=== PATIENT | male | born 1975 | race Caucasian/White ===

== ENCOUNTER 2017-10-17 21:40 | Emergency (ER) | payer OTHER ==
[~2017-10-17] VITALS: Ht 185.4 cm; Wt 108.9 kg
[~2017-10-17 21:40] MED LIST: ACYCLOVIR 400400 MG PO; BACTRIM DS TAB1 EACH PO; CIPROFLOXACIN500 M1 PO; DOXYCYCLINE 10100 MG PO; HYDROCODONE-APA1 TA1 PO; IBUPROFEN 800800 M1 PO; IBUPROFEN 800800 MG PO; KEFLEX500 MG PO; NOHOMEMEDICATIONS; NORCO 5-325 TA1 EACH PO; PENICILLIN VK500 M1 PO; PENICILLIN VK500 MG PO; PREDNISONE50 MG PO; TRAMADOL 50 MG50 MG PO; ULTRAM 50MG TAB50 MG PO; ZOVIRAX5 GM TP
[2017-10-17 23:09] LABS: ABSOLUTE BASOPHILS 0.1 thou/uL (0.0-0.2); ABSOLUTE EOSINOPHILS 0.3 thou/uL (0.0-0.7); ABSOLUTE LYMPHOCYTES 1.2 thou/uL (0.8-5.3); ABSOLUTE MONOCYTES 1.7 thou/uL (0.0-1.2); ABSOLUTE NEUTROPHILS 6.5 thou/uL (1.6-8.1); BASOPHILS 0.8 %; EOSINOPHILS 2.9 %; HEMATOCRIT 45.4 % (42.0-52.0); HEMOGLOBIN 15.6 gm/dL (14.0-18.0); LYMPHOCYTES 12.4 %; MCH 29.1 pg (26.0-34.0); MCHC 34.3 g/dL (28.0-37.0); MCV 84.9 fL (80.0-100.0); MPV 7.4 fl. (7.2-11.1); NUCLEATED RBCS 0 /100WBC; PLATELET COUNT* 217 thou/uL (150-400); POLYS 66.9 %; RBC 5.35 mil/uL (4.50-6.00); RDW-CV 13.3 % (10.5-14.5); WBC 9.7 thou/uL (4.0-11.0)
[2017-10-17 23:22] LABS: APTT 28.2 Seconds (25.0-31.3); PROTIME 10.1 Seconds (9.20-11.50)
[2017-10-17 23:27] LABS: CALCIUM 8.2 mg/dL (8.5-10.1); CREATININE 1.2 mg/dL (0.6-1.3); POTASSIUM 3.6 mmol/L (3.5-5.1)
[2017-10-17 23:32] LABS: ALBUMIN 3.5 g/dL (3.4-5.0); TOTAL BILIRUBIN 0.2 mg/dL (<0.1-1.0); TOTAL PROTEIN 7.1 g/dL (6.4-8.2)
[2017-10-17 23:57] LABS: INFLUENZA A ANTIGEN None Detected (None Detect); INFLUENZA B ANTIGEN None Detected (None Detect)
[2017-10-18 00:07] LABS: URINE BILIRUBIN NEGATIVE (Negative); URINE BLOOD TRACE (Negative); URINE CLARITY CLEAR; URINE COLOR YELLOW; URINE GLUCOSE-RANDOM NEGATIVE (Negative); URINE KETONES NEGATIVE (Negative); URINE LEUKOCYTES-REFLEX NEGATIVE (Negative); URINE NITRITE-REFLEX NEGATIVE (Negative); URINE PROTEIN NEGATIVE (Negative); URINE SPECIFIC GRAVITY <= 1.005 (1.005-1.030); URINE UROBILINOGEN 0.2 E.U./dl (0.2-1.0)
[2017-10-18 00:15] LABS: AMP/METHAMP Negative (Negative); BARBITURATES Negative (Negative); BENZODIAZEPINES Negative (Negative); COCAINE Negative (Negative); METHADONE Negative (Negative); OPIATES Negative (Negative); PCP Negative (Negative); THC Negative (Negative)
[2017-10-18] MEDS ORDERED: PRILOSEC 20 MG20 MG PO (00:57)
[2017-10-18] MEDS ORDERED: CARAFATE1 GM PO (00:57)
[2017-10-18 01:20] VITALS: BP 117/76
[2017-10-19] MEDS ORDERED: TORADOL 10 MG T10 MG PO (17:57)
[2017-10-19] MEDS ORDERED: ZPAK PO (17:57)
[2017-10-19] MEDS ORDERED: ZOFRAN ODT4 MG PO (17:57)
[2017-10-19] MEDS ORDERED: PROAIR HFA8.5 GM INH (18:03)
[2017-10-19] MEDS ORDERED: PROMETHAZINE V473 ML PO (18:03)
== END 2017-10-18 01:20 | disposition home or self-care (01) ==
LOC: M.ERS 21:40
PROVIDERS: Physician Assistant
DX: B34.9 Viral infection, unspecified (principal); K92.0 Hematemesis; R19.7 Diarrhea, unspecified; F17.210 Nicotine dependence, cigarettes, uncomplicated; Z90.89 Acquired absence of other organs

== ENCOUNTER 2017-10-19 15:30 | Emergency (ER) | payer OTHER ==
[~2017-10-19] VITALS: Ht 185.4 cm; Wt 108.9 kg
[~2017-10-19 15:30] MED LIST changes: +CARAFATE1 GM PO; +PRILOSEC 20 MG20 MG PO
--- NOTE | 2017-10-19 16:29 | EKG ---
[place] [address] ELECTROCARDIOGRAM REPORT Name: ANASHERRILL Room: [facility]#: [id number] Admission: 10/19/17 Attend Phys: Discharge: Date of : 75 Report #: [id number] THIS REPORT FOR: //name// [facility] ED Test Date: 2017-10-19 Test Time: 15:44:14 Pat Name: SHERRILL PEREZ Department: Room: Gender: Tax Services Specialist: Archie LEONG : 1975 Requested By: Kelin Owen Order Number: [id number] MD: Mikey Restrepo Measurements Intervals [place] Rate: 84 P: 42 NE: 124 QRS: 10 QRSD: 80 T: 24 QT: 325 QTc: 385 Interpretive Statements Sinus rhythm Compared to ECG 11/07/2016 15:44:40 Atrial premature complex(es) no longer present Short NE interval no longer present Electronically Signed On 10-19-2017 16:29:11 [employer] by Mikey Restrepo [email or web address] <ELECTRONICALLY SIGNED> By: Mikey Restrepo MD, [facility] 10/19/17 1629 1544 1544 Mikey Restrepo MD, FAC /EPI
[2017-10-19 16:32] LABS: ABSOLUTE EOSINOPHILS 0.1 thou/uL (0.0-0.7); ABSOLUTE LYMPHOCYTES 0.9 thou/uL (0.8-5.3); ABSOLUTE NEUTROPHILS 4.6 thou/uL (1.6-8.1); BASOPHILS 0.6 %; EOSINOPHILS 1.4 %; HEMATOCRIT 49.1 % (42.0-52.0); HEMOGLOBIN 16.7 gm/dL (14.0-18.0); LYMPHOCYTES 13.9 %; MCV 85.3 fL (80.0-100.0); MPV 7.8 fl. (7.2-11.1); NUCLEATED RBCS 0 /100WBC; PLATELET COUNT* 150 thou/uL (150-400); POLYS 69.1 %; RBC 5.75 mil/uL (4.50-6.00); RDW-CV 13.5 % (10.5-14.5); WBC 6.6 thou/uL (4.0-11.0)
[2017-10-19 16:40] LABS: ANION GAP 9 mmol/L (7-16); BUN 6 mg/dL (7-18); CALCIUM 8.1 mg/dL (8.5-10.1); CHLORIDE 103 mmol/L (98-107); CO2 27 mmol/L (21-32); CREATININE 1.2 mg/dL (0.6-1.3); GLUCOSE 98 mg/dL (70-99); POTASSIUM 3.8 mmol/L (3.5-5.1); SODIUM 139 mmol/L (136-145)
[2017-10-19 16:52] LABS: ALBUMIN 3.4 g/dL (3.4-5.0); ALKALINE PHOSPHATASE 111 U/L (46-116); SGOT 23 U/L (15-37); SGPT 24 U/L (30-65); TOTAL BILIRUBIN 0.3 mg/dL (<0.1-1.0); TROPONIN-I LEVEL <0.06 ng/mL (<0.06)
[2017-10-19] MEDS ORDERED: TORADOL 10 MG T10 MG PO (17:57)
[2017-10-19] MEDS ORDERED: ZOFRAN ODT4 MG PO (17:57)
[2017-10-19] MEDS ORDERED: ZPAK PO (17:57)
[2017-10-19] MEDS ORDERED: PROMETHAZINE V473 ML PO (18:03)
[2017-10-19] MEDS ORDERED: PROAIR HFA8.5 GM INH (18:03)
[2017-10-19 18:06] VITALS: BP 138/83
== END 2017-10-19 18:06 | disposition home or self-care (01) ==
LOC: M.ERS 15:30
PROVIDERS: Physician Assistant
DX: J20.9 Acute bronchitis, unspecified (principal); F17.210 Nicotine dependence, cigarettes, uncomplicated

== ENCOUNTER 2018-07-17 12:40 | Emergency (ER) | payer OTHER ==
[~2018-07-17] VITALS: Ht 185.4 cm; Wt 111.6 kg
[~2018-07-17 12:40] MED LIST changes: +PROAIR HFA8.5 GM INH; +PROMETHAZINE V473 ML PO; +TORADOL 10 MG T10 MG PO; +ZOFRAN ODT4 MG PO; +ZPAK PO
[2018-07-17 13:04] LABS: ABSOLUTE BASOPHILS 0.1 thou/uL (0.0-0.2); ABSOLUTE EOSINOPHILS 0.4 thou/uL (0.0-0.7); ABSOLUTE LYMPHOCYTES 2.9 thou/uL (0.8-5.3); ABSOLUTE MONOCYTES 0.8 thou/uL (0.0-1.2); BASOPHILS 0.9 %; EOSINOPHILS 4.8 %; HEMOGLOBIN 16.4 gm/dL (14.0-18.0); LYMPHOCYTES 31.3 %; MCH 28.5 pg (26.0-34.0); MCHC 33.6 g/dL (28.0-37.0); MCV 84.9 fL (80.0-100.0); MPV 7.8 fl. (7.2-11.1); NUCLEATED RBCS 0 /100WBC; PLATELET COUNT* 252 thou/uL (150-400); RBC 5.77 mil/uL (4.50-6.00); RDW-CV 13.1 % (10.5-14.5); WBC 9.3 thou/uL (4.0-11.0)
[2018-07-17 13:10] LABS: ANION GAP 8 mmol/L (7-16); BUN 14 mg/dL (7-18); CALCIUM 8.7 mg/dL (8.5-10.1); CHLORIDE 104 mmol/L (98-107); CO2 26 mmol/L (21-32); CREATININE 1.1 mg/dL (0.6-1.3); GLUCOSE 158 mg/dL (70-99); SODIUM 138 mmol/L (136-145)
[2018-07-17 13:20] LABS: ALBUMIN 3.6 g/dL (3.4-5.0); ALKALINE PHOSPHATASE 129 U/L (46-116); LIPASE 106 U/L (73-393); MAGNESIUM 1.7 mg/dL (1.8-2.4); NT-PRO BRAIN NAT PEPTIDE 43 pg/mL (<300); SGOT 16 U/L (15-37); SGPT 18 U/L (30-65); TOTAL BILIRUBIN 0.6 mg/dL (<0.1-1.0); TOTAL PROTEIN 7.2 g/dL (6.4-8.2); TROPONIN-I LEVEL <0.06 ng/mL (<0.06)
[2018-07-17] MEDS ORDERED: CARAFATE 1 GM TA1 G1 PO (13:46)
[2018-07-17 14:09] VITALS: BP 133/82
--- NOTE | 2018-07-18 17:50 | EKG ---
[place] [address] ELECTROCARDIOGRAM REPORT Name: ANASHERRILL Room: [facility]#: [id number] Admission: 07/17/18 Attend Phys: Discharge: 07/17/18 Date of : 75 Report #: [id number] THIS REPORT FOR: //name// [facility] ED Test Date: 2018-07-17 Test Time: 12:48:52 Pat Name: SHERRILL PEREZ Department: Room: Gender: M Biological Technician: Archie LEONG : 1975 Requested By: Farhat Moscoso Order Number: [id number] MD: Mikey Restrepo Measurements Intervals [place] Rate: 81 P: 66 GA: 122 QRS: 14 QRSD: 81 T: 31 QT: 360 QTc: 418 Interpretive Statements Sinus rhythm Sinus pause Possible left atrial enlargement Low voltage, precordial leads Compared to ECG 10/19/2017 15:44:14 Sinus pause or arrest now present Low QRS voltage now present Electronically Signed On 07-18-2018 17:50:37 CDT by Mikey Restrepo [email or web address] <ELECTRONICALLY SIGNED> By: Mikey Restrepo MD, FACC 07/18/18 1750 1248 1248 Mikey Restrepo MD, [facility] /EPI
== END 2018-07-17 14:10 | disposition home or self-care (01) ==
LOC: M.ERS 12:40
PROVIDERS: Emergency Medicine Emergency Medical Services
DX: R10.13 Epigastric pain (principal); F17.210 Nicotine dependence, cigarettes, uncomplicated

== ENCOUNTER 2018-11-18 19:15 | Emergency (ER) | payer OTHER ==
[~2018-11-18] VITALS: Ht 185.4 cm; Wt 113.4 kg
[~2018-11-18 19:15] MED LIST changes: +CARAFATE 1 GM TA1 G1 PO
[2018-11-18 21:38] LABS: URINE BILIRUBIN NEGATIVE (Negative); URINE BLOOD NEGATIVE (Negative); URINE CLARITY CLEAR; URINE COLOR YELLOW; URINE GLUCOSE-RANDOM NEGATIVE (Negative); URINE KETONES NEGATIVE (Negative); URINE LEUKOCYTES-REFLEX NEGATIVE (Negative); URINE NITRITE-REFLEX NEGATIVE (Negative); URINE PROTEIN NEGATIVE (Negative); URINE SPECIFIC GRAVITY >= 1.030 (1.005-1.030); URINE UROBILINOGEN 0.2 E.U./dl (0.2-1.0)
[2018-11-18 21:41] VITALS: BP 138/92
== END 2018-11-18 21:42 | disposition home or self-care (01) ==
LOC: M.ERS 19:15
PROVIDERS: Physician Assistant
DX: Z20.2 Contact with and (suspected) exposure to infections with a predominantly sexual mode of transmission (principal); F17.210 Nicotine dependence, cigarettes, uncomplicated; Z98.890 Other specified postprocedural states

== ENCOUNTER 2019-02-25 21:46 | Emergency (ER) | payer OTHER ==
[~2019-02-25] VITALS: Ht 185.4 cm; Wt 108.0 kg
[2019-02-25] MEDS ORDERED: VENTOLIN HFA 1818 GM INH (22:03)
[2019-02-25] MEDS ORDERED: ZOFRAN ODT4 MG PO (22:03)
[2019-02-25 22:22] LABS: ABSOLUTE LYMPHOCYTES 0.6 thou/uL (0.8-5.3); ABSOLUTE MONOCYTES 0.4 thou/uL (0.0-1.2); ABSOLUTE NEUTROPHILS 4.8 thou/uL (1.6-8.1); BASOPHILS 0.8 %; EOSINOPHILS 0.2 %; HEMATOCRIT 46.9 % (42.0-52.0); HEMOGLOBIN 16.1 gm/dL (14.0-18.0); LYMPHOCYTES 10.6 %; MCH 28.7 pg (26.0-34.0); MCHC 34.3 g/dL (28.0-37.0); MCV 83.9 fL (80.0-100.0); MONOCYTES 6.5 %; MPV 7.7 fl. (7.2-11.1); NUCLEATED RBCS 0 /100WBC; PLATELET COUNT* 130 thou/uL (150-400); POLYS 81.9 %; RBC 5.59 mil/uL (4.50-6.00); RDW-CV 13.1 % (10.5-14.5); WBC 5.9 thou/uL (4.0-11.0)
[2019-02-25 22:28] LABS: CALCIUM 8.3 mg/dL (8.5-10.1); CREATININE 1.2 mg/dL (0.6-1.3); POTASSIUM 3.7 mmol/L (3.5-5.1)
[2019-02-25 22:33] LABS: ALBUMIN 2.9 g/dL (3.4-5.0); TOTAL BILIRUBIN 0.4 mg/dL (<0.1-1.0); TOTAL PROTEIN 6.4 g/dL (6.4-8.2)
[2019-02-25 23:05] LABS: URINE BILIRUBIN NEGATIVE (Negative); URINE BLOOD 2+ (Negative); URINE CLARITY CLEAR; URINE COLOR YELLOW; URINE GLUCOSE-RANDOM NEGATIVE (Negative); URINE KETONES NEGATIVE (Negative); URINE LEUKOCYTES-REFLEX NEGATIVE (Negative); URINE NITRITE-REFLEX NEGATIVE (Negative); URINE PROTEIN 1+ (Negative); URINE UROBILINOGEN 0.2 E.U./dl (0.2-1.0)
[2019-02-25 23:26] LABS: CASTS None Seen /LPF (None Seen); SQUAMOUS NONE SEEN /LPF (0-3); URINE RBC 0-2 Rare /HPF (0-2); URINE WBC-REFLEX 0-5 Rare /HPF (0-5)
[2019-02-25 23:27] LABS: BACTERIA-REFLEX None Seen /HPF (None Seen); CRYSTALS None Seen /LPF (None Seen)
[2019-02-25 23:44] VITALS: BP 132/66
== END 2019-02-25 23:47 | disposition home or self-care (01) ==
LOC: M.ERS 21:46
PROVIDERS: Nurse Practitioner Family
DX: R11.2 Nausea with vomiting, unspecified (principal); F17.210 Nicotine dependence, cigarettes, uncomplicated; Z90.89 Acquired absence of other organs

== ENCOUNTER 2020-02-12 17:47 | Emergency (ER) | payer OTHER ==
[~2020-02-12] VITALS: Ht 182.9 cm; Wt 104.3 kg
[~2020-02-12 17:47] MED LIST changes: +VENTOLIN HFA 1818 GM INH
[2020-02-12] MEDS ORDERED: COUMADIN 3 MG TA3 MG PO (18:00)
[2020-02-12 18:23] LABS: URINE BLOOD 1+ (Negative); URINE CLARITY CLEAR; URINE COLOR DARK YELLOW; URINE GLUCOSE-RANDOM NEGATIVE (Negative); URINE KETONES NEGATIVE (Negative); URINE NITRITE-REFLEX NEGATIVE (Negative); URINE PROTEIN 1+ (Negative); URINE SPECIFIC GRAVITY >= 1.030 (1.005-1.030); URINE UROBILINOGEN 0.2 E.U./dl (0.2-1.0)
[2020-02-12] MEDS ORDERED: SUPRAX400 M1 PO (18:25)
[2020-02-12] MEDS ORDERED: AZITHROMYCIN250 MG PO (18:25)
[2020-02-12 18:28] LABS: URINE BILIRUBIN 1+ (Negative); URINE LEUKOCYTES-REFLEX 2+ (Negative)
[2020-02-12 18:29] LABS: ICTOTEST (BILI CONFIRMATORY) Negative (Negative)
[2020-02-12 18:34] VITALS: BP 122/86
[2020-02-12 18:37] LABS: MUCUS 4-6 Moderate strn/LPF (None Seen)
[2020-02-12 18:38] LABS: SQUAMOUS NONE SEEN /LPF (0-3); URINE WBC-REFLEX >25 Many /HPF (0-5)
[2020-02-12 18:39] LABS: BACTERIA-REFLEX 1-9 Few /HPF (None Seen); CASTS None Seen /LPF (None Seen); CRYSTALS None Seen /LPF (None Seen); URINE RBC 3-10 Few /HPF (0-2)
== END 2020-02-12 18:35 | disposition home or self-care (01) ==
LOC: M.ERS 17:47
PROVIDERS: Personal Emergency Response Attendant
DX: R36.9 Urethral discharge, unspecified (principal); F17.210 Nicotine dependence, cigarettes, uncomplicated; Z90.49 Acquired absence of other specified parts of digestive tract; Z86.711 Personal history of pulmonary embolism

== ENCOUNTER 2020-10-07 11:49 | Emergency (ER) | payer OTHER ==
[~2020-10-07] VITALS: Ht 182.9 cm; Wt 88.5 kg
[~2020-10-07 11:49] MED LIST changes: +AZITHROMYCIN250 MG PO; +COUMADIN 3 MG TA3 MG PO; +SUPRAX400 M1 PO
[2020-10-07] MEDS ORDERED: JANTOVEN5 MG PO (12:11)
[2020-10-07] MEDS ORDERED: JANTOVEN10 MG PO (12:11)
[2020-10-07] MEDS ORDERED: PENICILLIN V P500 MG PO (12:42)
[2020-10-07] MEDS ORDERED: HYDROCODON-ACE1 EAC7 PO (12:42)
[2020-10-07 12:44] LABS: URINE BILIRUBIN NEGATIVE (Negative); URINE BLOOD TRACE (Negative); URINE CLARITY CLEAR; URINE COLOR YELLOW; URINE GLUCOSE-RANDOM NEGATIVE (Negative); URINE KETONES NEGATIVE (Negative); URINE LEUKOCYTES-REFLEX NEGATIVE (Negative); URINE NITRITE-REFLEX NEGATIVE (Negative); URINE PROTEIN NEGATIVE (Negative); URINE SPECIFIC GRAVITY 1.025 (1.005-1.030); URINE UROBILINOGEN 0.2 E.U./dl (0.2-1.0)
[2020-10-07 12:52] VITALS: BP 125/70
== END 2020-10-07 12:53 | disposition home or self-care (01) ==
LOC: M.ERS 11:49
PROVIDERS: Nurse Practitioner Family
DX: K08.89 Other specified disorders of teeth and supporting structures (principal); R30.0 Dysuria; L98.8 Other specified disorders of the skin and subcutaneous tissue; F17.210 Nicotine dependence, cigarettes, uncomplicated; Z79.01 Long term (current) use of anticoagulants; Z79.899 Other long term (current) drug therapy; Z90.89 Acquired absence of other organs